=== PATIENT | female | born 1945 | race Caucasian/White ===

== ENCOUNTER 2021-03-03 08:31 | Inpatient (IN) ==
[2021-03-03] MEDS ORDERED: GLUCAGON 1 MG VIAL IM PRN ×2 (09:12)
[2021-03-03] MEDS ORDERED: DEXTROSE 50% 25 GM/50 ML VIAL IV PRN ×2 (09:12)
[2021-03-03] MEDS ORDERED: CLORAZEPATE 3.75 MG TABLET PO PRN (09:17)
[2021-03-03] MEDS ORDERED: MORPHINE 2 MG/1 ML SYRINGE IV PRN (09:18)
[2021-03-03] MEDS ORDERED: NITROGLYCERIN SL 0.4 MG TABLET SL PRN (09:18)
[2021-03-03] MEDS ORDERED: SODIUM CHLORIDE 0.9% 1,000 ML IV SCH (12:45)
[2021-03-03] MEDS: INSULIN REGULAR 100 UNIT/ML SUBCUT SCH ×3 (13:47→21:59)
[2021-03-03 13:59] LABS: Basophils % 0.4 % (0.0-0.8); Eosinophils # 0.1 10*3/uL (0.0-0.87); Eosinophils % 0.7 % (0.00-10.9); Hematocrit 45.3 VOL% (35.7-47.0); Hemoglobin 15.1 GM/DL (12.0-16.0); Immature Granulocytes % 0.6 %; Immature Granulocytes Absolute 0.04 #; Lymphocytes # 0.9 10*3/uL (1.4-4.0); Lymphocytes % 12.5 % (21.3-54.2); Mean Corpuscular HGB Conc 33.3 GM/DL (32-36); Mean Corpuscular Volume 90.2 FL (87-102); Monocytes % 7.4 % (1.7-12.7); Neutrophils % 78.4 % (38.7-73.9); Platelet Count 128 T/CUMM (130-400); Red Blood Count 5.02 MC/CUMM (3.8-5.5); White Blood Count 7.1 T/CUMM (4-12)
[2021-03-03 14:39] LABS: Albumin 3.2 G/DL (3.4-5.0); Bilirubin,Total 0.4 MG/DL (0.20-1.00); Calcium 8.9 MG/DL (8.5-10.1); Osmolality,Calculated 281.4 MOS/KG (273-304); Potassium 3.7 MMOL/L (3.5-5.1); Total Protein 6.8 G/DL (6.4-8.2)
[2021-03-03] MEDS ORDERED: PANTOPRAZOLE 40 MG TABLET PO ONE (14:52)
[2021-03-03] MEDS ORDERED: DIAZEPAM 5 MG TABLET PO ONE (14:52)
[2021-03-03 15:47] LABS: ABG Base Excess 4.2 MMOL/L (-2.5-2.5); ABG HCO3 28.1 MMOL/L (20-26); ABG Oxygen Saturation 97.3 % (95-100); ABG PH 7.457 (7.35-7.45); ABG PO2 87.5 MM HG (80-95)
[2021-03-03] MEDS: CHLORHEXIDINE 4% SOLN 118 ML BOTTLE TOP SCH ×2 (16:21→21:58)
[2021-03-03] MEDS: traMADol 50 MG TABLET PO SCH ×2 (18:31→22:01)
[2021-03-03] MEDS: METHENAMINE HIPPURATE 1 GM TABLET PO SCH (21:59)
[2021-03-03] MEDS: CHLORHEXIDINE 0.12% ORAL RINSE 60 ML BOTTLE SWISH/SPIT SCH (22:00)
[2021-03-04] MEDS ORDERED: CEFUROXIME INJ 1,500 MG in SODIUM CHLORIDE 0.9% 100 ML IV ONE (05:00)
[2021-03-04] MEDS ORDERED: PAPAVERINE 60 MG/2 ML VIAL ONE (05:29)
[2021-03-04] MEDS ORDERED: VANCOMYCIN 500 MG VIAL ONE (05:29)
[2021-03-04] MEDS ORDERED: VANCOMYCIN 1,000 MG VIAL ONE (05:29)
[2021-03-04] MEDS ORDERED: VECURONIUM 10 MG VIAL IV ONE ×2 (05:31→09:53)
[2021-03-04] MEDS ORDERED: LACTATED RINGERS 1,000 ML IV ONE (05:31)
[2021-03-04] MEDS ORDERED: CALCIUM CHLORIDE 1,000 MG/10 ML VIAL IV ONE ×2 (05:31→09:53)
[2021-03-04] MEDS ORDERED: SEVOFLURANE 1 UNIT/15 MINUTE INH ONE (05:31)
[2021-03-04] MEDS ORDERED: LIDOCAINE 2% 5 ML VIAL ONE ×2 (05:31→10:02)
[2021-03-04] MEDS ORDERED: SODIUM CHLORIDE 0.9% 1,000 ML IV ONE (05:31)
[2021-03-04] MEDS ORDERED: SUFentanil 250 MCG/5 ML AMP ONE ×3 (05:32→07:43)
[2021-03-04] MEDS ORDERED: MIDAZOLAM 10 MG/2 ML VIAL ONE ×4 (05:32→07:42)
[2021-03-04] MEDS ORDERED: AMINOCAPROIC ACID 5,000 MG/20 ML VIAL ONE (05:39)
[2021-03-04] MEDS ORDERED: SODIUM CHLORIDE 0.9% 250 ML IV ONE (05:43)
[2021-03-04] MEDS ORDERED: PHENYLEPHRINE 10 MG/1 ML VIAL IV ONE (05:44)
[2021-03-04] MEDS ORDERED: DIAZEPAM 5 MG TABLET PO ONE (06:00)
[2021-03-04] MEDS ORDERED: PANTOPRAZOLE 40 MG TABLET PO ONE (06:00)
[2021-03-04 07:27] LABS: ABG Base Excess 3.4 MMOL/L (-2.5-2.5); ABG HCO3 27.5 MMOL/L (20-26); ABG PCO2 34.2 MM HG (35-48); ABG PH 7.494 (7.35-7.45); ABG TCO2 22.8 MMOL/L (23-27); Glucose Heart Surgery 155 MG/DL (74-106); Hematocrit Heart Surgery 39.6 PERCENT (37-47); Hemoglobin Heart Surgery 12.9 G/DL (12.0-16.0); Ionized Calcium Arterial 1.11 MMOL/L (1.21-1.46); PCO2 Patient Temp Arterial 34.2 MMHG; PH Patient Temp Arterial 7.494; Patient Temperature 37 CELCIUS; Potassium Heart/CVR 3.7 MMOL/L (3.5-5.1); Sodium Heart/CVR 139 MMOL/L (135-145)
[2021-03-04 07:37] LABS: Bilirubin,Urine Negative (Negative); Blood, Urine Small mg/dL (Negative); Glucose,Urine (UA) Negative (Negative); Ketones,Urine Negative (Negative); Nitrite,Urine Negative (Negative); Protein,Urine Negative; RBC,Urine 1 /HPF (0-4); Squamous Epithelial Cell,Urine Few /HPF (0-10); Urine Appearance Slightly Hazy (Clear); Urine Color Yellow (Yellow); Urine Specific Gravity 1.016 (1.001-1.035); Urine Urobilinogen < 2.0 EU/DL (0.2-1.0)
[2021-03-04 08:53] LABS: Hematocrit Heart Surgery 24.8 PERCENT (37-47); Hemoglobin Heart Surgery 7.9 G/DL (12.0-16.0); PCO2 Patient Temp Venous 29.3 MM HG; PH Patient Temp Venous 7.544; PO2 Patient Temp Venous 41.2 MM HG; Potassium Heart/CVR 4.3 MMOL/L (3.5-5.1); VBG Base Excess 3.2 MEQ/L (0-4); VBG HCO3 27.1 MEQ/L (24-28); VBG Oxygen Saturation 88.5 %; VBG PCO2 33.9 MMHG (41-51); VBG PH 7.499; VBG PO2 50.5 MMHG (17-40); VBG Total CO2 24.5 MMOL/L
[2021-03-04] MEDS ORDERED: POTASSIUM CHLORIDE RIDER 20 MEQ/100 ML PREMIX IV ONE (09:08)
[2021-03-04] MEDS ORDERED: PHENYLEPHRINE DRIP 40 MG/250 ML PREMIX IV ONE (09:08)
[2021-03-04] MEDS ORDERED: ALBUMIN 5% 12.5 GM/250 ML VIAL IV ONE (09:09)
[2021-03-04] MEDS ORDERED: PHENYLEPHRINE DRIP 20 MG/250 ML PREMIX IV ONE (09:12)
[2021-03-04] MEDS ORDERED: HEPARIN/NACL 0.9% 2 UNITS/ML 1,000 UNIT/500 ML BAG IV ONE (09:12)
[2021-03-04] MEDS ORDERED: NITROGLYCERIN DRIP 50 MG/250 ML BOTTLE IV ONE (09:12)
[2021-03-04 09:23] LABS: Hematocrit Heart Surgery 28.6 PERCENT (37-47); Hemoglobin Heart Surgery 9.2 G/DL (12.0-16.0); PCO2 Patient Temp Venous 33.3 MM HG; PH Patient Temp Venous 7.512; PO2 Patient Temp Venous 46.2 MM HG; Potassium Heart/CVR 3.8 MMOL/L (3.5-5.1); VBG Base Excess 3.9 MEQ/L (0-4); VBG HCO3 27.8 MEQ/L (24-28); VBG Oxygen Saturation 89.7 %; VBG PCO2 38.5 MMHG (41-51); VBG PH 7.467; VBG PO2 56.5 MMHG (17-40); VBG Total CO2 25.5 MMOL/L
[2021-03-04] MEDS ORDERED: ALBUMIN 25% 25 GM/100 ML VIAL IV ONE (10:02)
[2021-03-04] MEDS ORDERED: methylPREDNISolone SOD SUC 1,000 MG/8 ML VIAL ONE (10:02)
[2021-03-04] MEDS ORDERED: MANNITOL 100 GM/500 ML BAG IV ONE (10:02)
[2021-03-04] MEDS ORDERED: MAGNESIUM SULFATE 5 GM/10 ML VIAL IV ONE (10:02)
[2021-03-04] MEDS ORDERED: DEXTROSE 5% KCL 20 MEQ 20 MEQ/1,000 ML BAG IV ONE (10:02)
[2021-03-04] MEDS ORDERED: SODIUM BICARBONATE 50 MEQ/50 ML VIAL IV ONE (10:03)
[2021-03-04] MEDS ORDERED: PROTAMINE SULFATE 250 MG/25 ML VIAL IV ONE (10:03)
[2021-03-04] MEDS ORDERED: HEPARIN 10,000 UNIT/10 ML VIAL ONE (10:03)
[2021-03-04] MEDS ORDERED: FUROSEMIDE 20 MG/2 ML VIAL ONE (10:03)
[2021-03-04 10:09] LABS: ABG Base Excess 2.3 MMOL/L (-2.5-2.5); ABG HCO3 26.5 MMOL/L (20-26); ABG PH 7.532 (7.35-7.45); ABG TCO2 22.2 MMOL/L (23-27); Glucose Heart Surgery 231 MG/DL (74-106); Hematocrit Heart Surgery 29.9 PERCENT (37-47); Hemoglobin Heart Surgery 9.7 G/DL (12.0-16.0); Ionized Calcium Arterial 1.49 MMOL/L (1.21-1.46); PH Patient Temp Arterial 7.532; Patient Temperature 37 CELCIUS; Potassium Heart/CVR 3.5 MMOL/L (3.5-5.1); Sodium Heart/CVR 135 MMOL/L (135-145)
[2021-03-04] MEDS ORDERED: ACETAMINOPHEN 650 MG SUPP RECTAL PRN (10:25)
[2021-03-04] MEDS ORDERED: MIDAZOLAM 10 MG/2 ML VIAL IV PRN (10:25)
[2021-03-04] MEDS ORDERED: NITROPRUSSIDE 100 MG in DEXTROSE 5% 250 ML IV PRN (10:25)
[2021-03-04] MEDS ORDERED: DEXTROSE 50% 25 GM/50 ML VIAL IV PRN ×2 (10:25)
[2021-03-04] MEDS ORDERED: CALCIUM CHLORIDE 1,000 MG/10 ML SYRINGE IV PRN (10:25)
[2021-03-04] MEDS ORDERED: INSULIN REGULAR 100 UNIT/ML IV PRN (10:25)
[2021-03-04] MEDS ORDERED: CHLORHEXIDINE 4% SOLN 118 ML BOTTLE TOP PRN (10:25)
[2021-03-04] MEDS ORDERED: ONDANSETRON 4 MG/2 ML VIAL IV PRN (10:25)
[2021-03-04] MEDS ORDERED: MAGNESIUM SULF RIDER 2 GM/50 ML PREMIX IV PRN (10:25)
[2021-03-04] MEDS ORDERED: MAGNESIUM SULF RIDER 4 GM/100 ML PREMIX IV PRN (10:25)
[2021-03-04] MEDS ORDERED: VECURONIUM 10 MG VIAL IV PRN ×2 (10:25)
[2021-03-04] MEDS ORDERED: PHENYLEPHRINE DRIP 40 MG/250 ML PREMIX IV PRN (10:25)
[2021-03-04] MEDS ORDERED: INSULIN REGULAR 100 UNIT/ML IV ONE (10:25)
[2021-03-04] MEDS ORDERED: MIDAZOLAM 2 MG/2 ML VIAL IV PRN (10:25)
[2021-03-04] MEDS ORDERED: INSULIN REGULAR DRIP 100 ML IV SCH (10:30)
[2021-03-04] MEDS: SODIUM CHLORIDE 0.45% 1,000 ML IV SCH ×2 (10:40)
[2021-03-04 11:31] LABS: ABG Base Excess 2.6 MMOL/L (-2.5-2.5); ABG HCO3 24.6 MMOL/L (20-26); ABG PCO2 29.8 MM HG (35-48); ABG PH 7.535 (7.35-7.45); ABG PO2 122.4 MM HG (80-95); ABG TCO2 25.5 MMOL/L (23-27); Glucose Heart Surgery 200 MG/DL (74-106); Potassium Heart/CVR 3.2 MMOL/L (3.5-5.1)
[2021-03-04] MEDS: LACTATED RINGERS 250 ML IV PRN ×6 (11:31→22:40)
[2021-03-04 11:35] LABS: Basophils % 0.3 % (0.0-0.8); Eosinophils % 0.3 % (0.00-10.9); Hematocrit 33.4 VOL% (35.7-47.0); Immature Granulocytes % 1.6 %; Immature Granulocytes Absolute 0.05 #; Lymphocytes # 0.2 10*3/uL (1.4-4.0); Lymphocytes % 7.3 % (21.3-54.2); Mean Corpuscular HGB Conc 34.4 GM/DL (32-36); Mean Corpuscular Volume 87.9 FL (87-102); Mean Platelet Volume 11.9 FL (9.6-12.0); Monocytes % 3.8 % (1.7-12.7); Neutrophils % 86.7 % (38.7-73.9); Red Cell Distribution Width 12.9 % (9.3-17.3)
[2021-03-04 11:41] LABS: Hemoglobin 11.5 GM/DL (12.0-16.0); Platelet Count 86 T/CUMM (130-400); White Blood Count 3.1 T/CUMM (4-12)
[2021-03-04 11:48] LABS: INR 1.1; PT Patient Result 12.4 SECS (10.5-12.0); Partial Thromboplastin Time 25.2 SECS (23.9-33.8)
[2021-03-04 12:09] LABS: CKMB % 7.8 %
[2021-03-04 12:10] LABS: High Sensitive Troponin I* 3352.8 ng/L (0-54)
[2021-03-04] MEDS: POTASSIUM CHLORIDE RIDER 20 MEQ/100 ML PREMIX IV PRN ×4 (12:11→21:44)
[2021-03-04] MEDS: traMADol 50 MG TABLET PO SCH (12:12)
[2021-03-04] MEDS: CHLORHEXIDINE 4% SOLN 118 ML BOTTLE TOP SCH (12:12)
[2021-03-04] MEDS: INSULIN REGULAR 100 UNIT/ML SUBCUT SCH (12:13)
[2021-03-04] MEDS: CHLORHEXIDINE 0.12% ORAL RINSE 60 ML BOTTLE SWISH/SPIT SCH ×2 (12:13→21:29)
[2021-03-04] MEDS: METHENAMINE HIPPURATE 1 GM TABLET PO SCH (12:13)
[2021-03-04 12:27] LABS: Albumin 2.7 G/DL (3.4-5.0); Bilirubin,Total 1.4 MG/DL (0.20-1.00); Calcium 9.5 MG/DL (8.5-10.1); Osmolality,Calculated 281.8 MOS/KG (273-304); Potassium 3.4 MMOL/L (3.5-5.1); Total Protein 4.9 G/DL (6.4-8.2)
[2021-03-04] MEDS: KETOROLAC 30 MG/1 ML VIAL IV SCH ×2 (13:07→18:40)
[2021-03-04] MEDS: ALBUMIN 5% 12.5 GM/250 ML VIAL IV PRN ×2 (13:49→19:50)
[2021-03-04 14:18] LABS: ABG HCO3 26.2 MMOL/L (20-26); ABG Oxygen Saturation 99.8 % (95-100); ABG PCO2 31.2 MM HG (35-48); ABG PH 7.503 (7.35-7.45); ABG TCO2 21.6 MMOL/L (23-27); Glucose Heart Surgery 178 MG/DL (74-106); Hematocrit Heart Surgery 36.6 PERCENT (37-47); Hemoglobin Heart Surgery 11.9 G/DL (12.0-16.0); Potassium Heart/CVR 3.7 MMOL/L (3.5-5.1)
[2021-03-04] MEDS: POTASSIUM CHLORIDE RIDER 10 MEQ/100 ML PREMIX IV PRN ×2 (15:24→22:27)
[2021-03-04 17:04] LABS: ABG Base Excess 2.7 MMOL/L (-2.5-2.5); ABG HCO3 26.8 MMOL/L (20-26); ABG Oxygen Saturation 99.6 % (95-100); ABG PCO2 30.2 MM HG (35-48); ABG PH 7.521 (7.35-7.45); ABG TCO2 21.4 MMOL/L (23-27); Glucose Heart Surgery 134 MG/DL (74-106); Hematocrit Heart Surgery 39.6 PERCENT (37-47); Hemoglobin Heart Surgery 12.9 G/DL (12.0-16.0)
[2021-03-04] MEDS: MORPHINE 10 MG/1 ML VIAL IV PRN ×2 (17:36→23:45)
[2021-03-04] MEDS: CEFUROXIME INJ 1,500 MG in SODIUM CHLORIDE 0.9% 100 ML IV SCH (18:45)
[2021-03-04 19:24] LABS: ABG Base Excess 2.8 MMOL/L (-2.5-2.5); ABG HCO3 26.9 MMOL/L (20-26); ABG Oxygen Saturation 99.7 % (95-100); ABG PCO2 29.5 MM HG (35-48); ABG TCO2 21.4 MMOL/L (23-27); Glucose Heart Surgery 164 MG/DL (74-106); Hematocrit Heart Surgery 39.5 PERCENT (37-47); Hemoglobin Heart Surgery 12.8 G/DL (12.0-16.0)
[2021-03-04] MEDS ORDERED: FUROSEMIDE 40 MG/4 ML VIAL IV ONE (19:40)
[2021-03-04] MEDS ORDERED: FUROSEMIDE 40 MG/4 ML VIAL ONE (19:41)
[2021-03-04 20:16] LABS: ABG Base Excess 2.6 MMOL/L (-2.5-2.5); ABG HCO3 24.5 MMOL/L (20-26); ABG Oxygen Saturation 98.4 % (95-100); ABG PCO2 29.8 MM HG (35-48); ABG PH 7.533 (7.35-7.45); ABG TCO2 25.4 MMOL/L (23-27); Glucose Heart Surgery 151 MG/DL (74-106); Hemoglobin Heart Surgery 12.8 G/DL (12.0-16.0); Potassium Heart/CVR 3.9 MMOL/L (3.5-5.1)
[2021-03-04 20:32] LABS: CKMB % 7.7 %
[2021-03-04 20:38] LABS: High Sensitive Troponin I* 5799.8 ng/L (0-54)
[2021-03-04 21:29] LABS: ABG Base Excess 2.8 MMOL/L (-2.5-2.5); ABG HCO3 26.2 MMOL/L (20-26); ABG Oxygen Saturation 98.3 % (95-100); ABG PCO2 36.2 MM HG (35-48); ABG PH 7.477 (7.35-7.45); ABG PO2 136.7 MM HG (80-95); ABG TCO2 27.3 MMOL/L (23-27); Glucose Heart Surgery 158 MG/DL (74-106); Hemoglobin Heart Surgery 12.9 G/DL (12.0-16.0); Potassium Heart/CVR 3.8 MMOL/L (3.5-5.1)
[2021-03-04 23:23] LABS: ABG Base Excess 1.7 MMOL/L (-2.5-2.5); ABG HCO3 25.9 MMOL/L (20-26); ABG Oxygen Saturation 99.3 % (95-100); ABG PCO2 42.8 MM HG (35-48); ABG PH 7.403 (7.35-7.45); ABG TCO2 23.5 MMOL/L (23-27); Glucose Heart Surgery 158 MG/DL (74-106); Hematocrit Heart Surgery 38.4 PERCENT (37-47); Hemoglobin Heart Surgery 12.5 G/DL (12.0-16.0); Potassium Heart/CVR 4.4 MMOL/L (3.5-5.1)
[2021-03-05] MEDS ORDERED: DEXMEDETOMIDINE 200 MCG in SODIUM CHLORIDE 0.9% 48 ML IV PRN (00:03)
[2021-03-05] MEDS: KETOROLAC 30 MG/1 ML VIAL IV SCH ×4 (00:34→20:23)
[2021-03-05] MEDS: ALBUMIN 5% 12.5 GM/250 ML VIAL IV PRN ×5 (01:42→16:27)
[2021-03-05 02:14] LABS: ABG Base Excess 1.3 MMOL/L (-2.5-2.5); ABG HCO3 25.6 MMOL/L (20-26); ABG Oxygen Saturation 99.2 % (95-100); ABG PCO2 45.1 MM HG (35-48); ABG PH 7.382 (7.35-7.45); ABG TCO2 23.9 MMOL/L (23-27); Glucose Heart Surgery 140 MG/DL (74-106); Hematocrit Heart Surgery 36.3 PERCENT (37-47); Hemoglobin Heart Surgery 11.8 G/DL (12.0-16.0); Potassium Heart/CVR 4.1 MMOL/L (3.5-5.1)
[2021-03-05] MEDS ORDERED: FUROSEMIDE 40 MG/4 ML VIAL IV ONE (03:00)
[2021-03-05 03:45] LABS: CKMB % 9.6 %
[2021-03-05 03:51] LABS: High Sensitive Troponin I* 8063.4 ng/L (0-54)
[2021-03-05 04:00] LABS: Basophils % 0.1 % (0.0-0.8); Hematocrit 34.7 VOL% (35.7-47.0); Hemoglobin 11.7 GM/DL (12.0-16.0); Immature Granulocytes % 0.5 %; Immature Granulocytes Absolute 0.07 #; Lymphocytes # 0.3 10*3/uL (1.4-4.0); Lymphocytes % 2.5 % (21.3-54.2); Mean Corpuscular HGB Conc 33.7 GM/DL (32-36); Mean Platelet Volume 11.9 FL (9.6-12.0); Monocytes % 2.4 % (1.7-12.7); Neutrophils % 94.5 % (38.7-73.9); Platelet Count 108 T/CUMM (130-400); Red Cell Distribution Width 13.1 % (9.3-17.3); White Blood Count 13.6 T/CUMM (4-12)
[2021-03-05 04:08] LABS: Albumin 3.5 G/DL (3.4-5.0); Bilirubin,Direct 0.22 MG/DL (0.0-0.20); Bilirubin,Total 1.7 MG/DL (0.20-1.00); Calcium 8.6 MG/DL (8.5-10.1); Osmolality,Calculated 286.3 MOS/KG (273-304); Potassium 4.1 MMOL/L (3.5-5.1); Total Protein 5.4 G/DL (6.4-8.2)
[2021-03-05 04:20] LABS: CKMB % 9.6 %; High Sensitive Troponin I* 9346.5 ng/L (0-54)
[2021-03-05 04:40] LABS: Band Neutrophils 7 % (0-10); Hypochromasia Slight; Lymphocytes 1 % (20-55); Microcytosis 1+; Ovalocytes Slight; Platelet Estimate Decreased; Segmented Neutrophils 90 % (50-85); Total Cells Counted 100
[2021-03-05 04:52] LABS: ABG Base Excess 2.3 MMOL/L (-2.5-2.5); ABG HCO3 26.4 MMOL/L (20-26); ABG PCO2 44.4 MM HG (35-48); ABG TCO2 24.2 MMOL/L (23-27); Glucose Heart Surgery 146 MG/DL (74-106); Hematocrit Heart Surgery 38.1 PERCENT (37-47); Hemoglobin Heart Surgery 12.4 G/DL (12.0-16.0); Potassium Heart/CVR 3.9 MMOL/L (3.5-5.1)
[2021-03-05] MEDS ORDERED: DEXMEDETOMIDINE 400 MCG in SODIUM CHLORIDE 0.9% 96 ML IV PRN (05:00)
[2021-03-05] MEDS: CEFUROXIME INJ 1,500 MG in SODIUM CHLORIDE 0.9% 100 ML IV SCH ×2 (05:20→17:30)
[2021-03-05] MEDS: MORPHINE 10 MG/1 ML VIAL IV PRN (07:12)
[2021-03-05] MEDS ORDERED: KETOROLAC 30 MG/1 ML VIAL IV PRN (07:53)
[2021-03-05 08:14] LABS: ABG Base Excess 1.1 MMOL/L (-2.5-2.5); ABG HCO3 26.6 MMOL/L (20-26); ABG Oxygen Saturation 98.4 % (95-100); ABG PCO2 45.6 MM HG (35-48); ABG PH 7.383 (7.35-7.45); ABG PO2 140.4 MM HG (80-95); Glucose Heart Surgery 165 MG/DL (74-106); Hemoglobin Heart Surgery 12.6 G/DL (12.0-16.0); Potassium Heart/CVR 4.2 MMOL/L (3.5-5.1)
[2021-03-05] MEDS: POTASSIUM CHLORIDE RIDER 20 MEQ/100 ML PREMIX IV PRN (08:37)
[2021-03-05] MEDS: INSULIN REGULAR 100 UNIT/ML SUBCUT SCH ×5 (08:37→23:58)
[2021-03-05] MEDS: CHLORHEXIDINE 0.12% ORAL RINSE 60 ML BOTTLE SWISH/SPIT SCH ×2 (09:13→20:38)
[2021-03-05 09:34] LABS: ABG Base Excess 0.2 MMOL/L (-2.5-2.5); ABG HCO3 25.8 MMOL/L (20-26); ABG Oxygen Saturation 97.6 % (95-100); ABG PCO2 45.9 MM HG (35-48); ABG PH 7.368 (7.35-7.45); ABG PO2 111.5 MM HG (80-95); ABG TCO2 27.2 MMOL/L (23-27); Glucose Heart Surgery 179 MG/DL (74-106); Hemoglobin Heart Surgery 12.6 G/DL (12.0-16.0); Potassium Heart/CVR 4.3 MMOL/L (3.5-5.1)
[2021-03-05 11:19] LABS: ABG Base Excess -0.2 MMOL/L (-2.5-2.5); ABG HCO3 24.2 MMOL/L (20-26); ABG Oxygen Saturation 95.4 % (95-100); ABG PCO2 51.2 MM HG (35-48); ABG PH 7.324 (7.35-7.45); ABG PO2 80.7 MM HG (80-95); ABG TCO2 23.9 MMOL/L (23-27); Glucose Heart Surgery 187 MG/DL (74-106); Hematocrit Heart Surgery 35.2 PERCENT (37-47); Hemoglobin Heart Surgery 11.4 G/DL (12.0-16.0); Potassium Heart/CVR 4.6 MMOL/L (3.5-5.1)
[2021-03-05] MEDS: SODIUM CHLORIDE 0.45% 1,000 ML IV SCH ×2 (11:39)
[2021-03-05] MEDS ORDERED: oxyCODONE/ACETAMINOPHEN 5-325 MG TABLET PO PRN (12:30)
[2021-03-05] MEDS: ASPIRIN EC 81 MG TABLET PO SCH (13:35)
[2021-03-05] MEDS: CLORAZEPATE 3.75 MG TABLET PO PRN ×3 (14:31→23:52)
[2021-03-05] MEDS: traMADol 50 MG TABLET PO PRN ×2 (17:51→23:52)
[2021-03-06] MEDS: SODIUM CHLORIDE 0.45% 1,000 ML IV SCH (00:08)
[2021-03-06] MEDS: INSULIN REGULAR 100 UNIT/ML SUBCUT SCH ×5 (04:01→21:25)
[2021-03-06] MEDS: KETOROLAC 30 MG/1 ML VIAL IV SCH ×5 (04:02→21:25)
[2021-03-06] MEDS: traMADol 50 MG TABLET PO PRN ×2 (04:07→08:45)
[2021-03-06] MEDS: CLORAZEPATE 3.75 MG TABLET PO PRN ×2 (04:07→09:14)
[2021-03-06 06:51] LABS: Basophils % 0.1 % (0.0-0.8); Eosinophils % 0.1 % (0.00-10.9); Hematocrit 30.5 VOL% (35.7-47.0); Hemoglobin 10.2 GM/DL (12.0-16.0); Immature Granulocytes % 0.6 %; Immature Granulocytes Absolute 0.04 #; Lymphocytes # 0.5 10*3/uL (1.4-4.0); Lymphocytes % 6.5 % (21.3-54.2); Mean Corpuscular HGB Conc 33.4 GM/DL (32-36); Mean Corpuscular Volume 92.1 FL (87-102); Mean Platelet Volume 12.1 FL (9.6-12.0); Monocytes % 6.5 % (1.7-12.7); Neutrophils % 86.2 % (38.7-73.9); Platelet Count 64 T/CUMM (130-400); Red Blood Count 3.31 MC/CUMM (3.8-5.5); Red Cell Distribution Width 13.2 % (9.3-17.3); White Blood Count 6.9 T/CUMM (4-12)
[2021-03-06 07:09] LABS: Albumin 3.2 G/DL (3.4-5.0); Bilirubin,Direct 0.14 MG/DL (0.0-0.20); Bilirubin,Total 0.8 MG/DL (0.20-1.00); Calcium 8.6 MG/DL (8.5-10.1); Osmolality,Calculated 286.4 MOS/KG (273-304); Total Protein 5.3 G/DL (6.4-8.2)
[2021-03-06 07:17] LABS: ABG Base Excess 2.2 MMOL/L (-2.5-2.5); ABG HCO3 26.9 MMOL/L (20-26); ABG Oxygen Saturation 91.4 % (95-100); ABG PCO2 42.3 MM HG (35-48); ABG PH 7.421 (7.35-7.45); ABG PO2 60.6 MM HG (80-95); ABG TCO2 28.2 MMOL/L (23-27)
[2021-03-06 07:38] LABS: Anisocytosis 1+; Ovalocytes Few; Platelet Estimate Decreased
[2021-03-06] MEDS: AMITRIPTYLINE 25 MG TABLET PO SCH (08:19)
[2021-03-06] MEDS: CHLORHEXIDINE 0.12% ORAL RINSE 60 ML BOTTLE SWISH/SPIT SCH ×2 (08:19→21:26)
[2021-03-06] MEDS: ASPIRIN EC 81 MG TABLET PO SCH (08:19)
[2021-03-06] MEDS: METHENAMINE HIPPURATE 1 GM TABLET PO SCH ×2 (08:19→21:25)
[2021-03-06] MEDS: ASCORBIC ACID 500 MG TABLET PO SCH ×2 (08:19→21:25)
[2021-03-06] MEDS: POTASSIUM CHLORIDE RIDER 20 MEQ/100 ML PREMIX IV PRN (08:20)
[2021-03-06] MEDS ORDERED: FUROSEMIDE 40 MG/4 ML VIAL IV ONE (08:45)
[2021-03-06] MEDS ORDERED: FUROSEMIDE 40 MG/4 ML VIAL ONE (09:03)
[2021-03-06] MEDS ORDERED: MAGNESIUM SULF RIDER 4 GM/100 ML PREMIX IV PRN (09:46)
[2021-03-06] MEDS ORDERED: DEXTROSE 50% 25 GM/50 ML VIAL IV PRN ×2 (09:46)
[2021-03-06] MEDS ORDERED: GLUCAGON 1 MG VIAL IM PRN ×2 (09:46)
[2021-03-06] MEDS ORDERED: SODIUM CHLOR 0.45% KCL 20 MEQ 20 MEQ/1,000 ML BAG IV SCH (09:46)
[2021-03-06] MEDS ORDERED: MAGNESIUM SULF RIDER 2 GM/50 ML PREMIX IV PRN (09:46)
[2021-03-06] MEDS ORDERED: ZALEPLON 5 MG CAPSULE PO PRN (09:46)
[2021-03-06] MEDS ORDERED: ACETAMINOPHEN 325 MG TABLET PO PRN (09:46)
[2021-03-06] MEDS ORDERED: ALUMINUM/MAGNES/SIMETH MAX STR 30 ML UDCUP PO PRN (09:46)
[2021-03-06] MEDS ORDERED: [UNRECOGNIZED DRUG - OTHER] SUBCUT SCH (11:30)
[2021-03-07] MEDS: KETOROLAC 30 MG/1 ML VIAL IV SCH ×4 (04:10→21:13)
[2021-03-07 05:36] LABS: Basophils % 0.2 % (0.0-0.8); Eosinophils # 0.1 10*3/uL (0.0-0.87); Eosinophils % 1.2 % (0.00-10.9); Hematocrit 30.5 VOL% (35.7-47.0); Hemoglobin 10.2 GM/DL (12.0-16.0); Immature Granulocytes % 1.2 %; Immature Granulocytes Absolute 0.07 #; Lymphocytes # 0.7 10*3/uL (1.4-4.0); Lymphocytes % 10.7 % (21.3-54.2); Mean Corpuscular HGB Conc 33.4 GM/DL (32-36); Mean Corpuscular Volume 91.3 FL (87-102); Mean Platelet Volume 11.7 FL (9.6-12.0); Monocytes % 7.4 % (1.7-12.7); Neutrophils % 79.3 % (38.7-73.9); Red Blood Count 3.34 MC/CUMM (3.8-5.5); Red Cell Distribution Width 13.2 % (9.3-17.3); White Blood Count 6.1 T/CUMM (4-12)
[2021-03-07 05:49] LABS: Platelet Count 71 T/CUMM (130-400)
[2021-03-07] MEDS ORDERED: FUROSEMIDE 40 MG/4 ML VIAL IV ONE (06:00)
[2021-03-07 06:04] LABS: Albumin 2.9 G/DL (3.4-5.0); Bilirubin,Direct 0.17 MG/DL (0.0-0.20); Bilirubin,Indirect 1.2 MG/DL (0.0-1.0); Bilirubin,Total 1.4 MG/DL (0.20-1.00); Calcium 8.5 MG/DL (8.5-10.1); Osmolality,Calculated 284.7 MOS/KG (273-304); Potassium 4.1 MMOL/L (3.5-5.1); Total Protein 5.1 G/DL (6.4-8.2)
[2021-03-07 06:07] LABS: High Sensitive Troponin I* 12722.9 ng/L (0-54)
[2021-03-07 06:25] LABS: Anisocytosis 1+; Macrocytosis 1+; Platelet Estimate Decreased
[2021-03-07] MEDS: INSULIN REGULAR 100 UNIT/ML SUBCUT SCH ×4 (08:29→21:12)
[2021-03-07] MEDS ORDERED: NON-FORMULARY MEDICATION (Aspirin 81 mg Capsule) PO SCH (09:00)
[2021-03-07] MEDS ORDERED: CHOLECALCIFEROL PO SCH (09:00)
[2021-03-07] MEDS: DOCUSATE SODIUM 100 MG CAPSULE PO SCH (09:20)
[2021-03-07] MEDS: ASCORBIC ACID 500 MG TABLET PO SCH ×2 (09:20→21:13)
[2021-03-07] MEDS: ASPIRIN EC 81 MG TABLET PO SCH (09:21)
[2021-03-07] MEDS: PANTOPRAZOLE 40 MG TABLET PO SCH (09:21)
[2021-03-07] MEDS: FERROUS SULFATE 325 MG TABLET PO SCH (09:21)
[2021-03-07] MEDS: FUROSEMIDE 20 MG TABLET PO SCH (09:21)
[2021-03-07] MEDS: METHENAMINE HIPPURATE 1 GM TABLET PO SCH ×2 (09:21→21:13)
[2021-03-07] MEDS: AMITRIPTYLINE 25 MG TABLET PO SCH (09:21)
[2021-03-07] MEDS: CHOLECALCIFEROL 5,000 UNIT TABLET PO SCH ×2 (09:22→09:29)
[2021-03-07] MEDS: CHLORHEXIDINE 0.12% ORAL RINSE 60 ML BOTTLE SWISH/SPIT SCH ×2 (09:30→21:14)
[2021-03-07] MEDS: METOPROLOL TARTRATE 25 MG TABLET PO SCH (09:39)
[2021-03-07] MEDS: traMADol 50 MG TABLET PO PRN (13:28)
[2021-03-07] MEDS: CLORAZEPATE 3.75 MG TABLET PO PRN (15:24)
[2021-03-08] MEDS: KETOROLAC 30 MG/1 ML VIAL IV SCH ×4 (04:46→22:34)
[2021-03-08 06:31] LABS: Basophils % 0.3 % (0.0-0.8); Eosinophils # 0.1 10*3/uL (0.0-0.87); Eosinophils % 1.9 % (0.00-10.9); Hematocrit 32.3 VOL% (35.7-47.0); Hemoglobin 10.8 GM/DL (12.0-16.0); Immature Granulocytes % 0.7 %; Immature Granulocytes Absolute 0.04 #; Lymphocytes # 0.8 10*3/uL (1.4-4.0); Lymphocytes % 13.6 % (21.3-54.2); Mean Corpuscular HGB Conc 33.4 GM/DL (32-36); Mean Platelet Volume 12.5 FL (9.6-12.0); Neutrophils % 76.5 % (38.7-73.9); Platelet Count 88 T/CUMM (130-400); Red Blood Count 3.55 MC/CUMM (3.8-5.5); Red Cell Distribution Width 13.2 % (9.3-17.3); White Blood Count 5.8 T/CUMM (4-12)
[2021-03-08 06:56] LABS: Hypochromasia 1+; Microcytosis 1+; Platelet Estimate Decreased
[2021-03-08 07:05] LABS: Albumin 2.7 G/DL (3.4-5.0); Bilirubin,Direct 0.18 MG/DL (0.0-0.20); Bilirubin,Indirect 0.8 MG/DL (0.0-1.0); CKMB % 10.7 %; Calcium 8.6 MG/DL (8.5-10.1); High Sensitive Troponin I* 11069.4 ng/L (0-54); Osmolality,Calculated 290.3 MOS/KG (273-304); Potassium 3.9 MMOL/L (3.5-5.1); Total Protein 5.1 G/DL (6.4-8.2)
[2021-03-08] MEDS: INSULIN REGULAR 100 UNIT/ML SUBCUT SCH ×4 (08:31→21:37)
[2021-03-08] MEDS: ASPIRIN EC 81 MG TABLET PO SCH (09:24)
[2021-03-08] MEDS: DOCUSATE SODIUM 100 MG CAPSULE PO SCH (09:24)
[2021-03-08] MEDS: FERROUS SULFATE 325 MG TABLET PO SCH (09:25)
[2021-03-08] MEDS: AMITRIPTYLINE 25 MG TABLET PO SCH (09:25)
[2021-03-08] MEDS: METHENAMINE HIPPURATE 1 GM TABLET PO SCH ×2 (09:26→22:33)
[2021-03-08] MEDS: FUROSEMIDE 20 MG TABLET PO SCH (09:26)
[2021-03-08] MEDS: CHLORHEXIDINE 0.12% ORAL RINSE 60 ML BOTTLE SWISH/SPIT SCH ×2 (09:27→22:33)
[2021-03-08] MEDS: METOPROLOL TARTRATE 25 MG TABLET PO SCH (09:27)
[2021-03-08] MEDS: ASCORBIC ACID 500 MG TABLET PO SCH ×2 (09:28→22:33)
[2021-03-08] MEDS: PANTOPRAZOLE 40 MG TABLET PO SCH (09:28)
[2021-03-08] MEDS: CHOLECALCIFEROL 5,000 UNIT TABLET PO SCH (09:29)
[2021-03-08] MEDS: POTASSIUM CHLORIDE 20 MEQ TABLET PO PRN ×2 (09:29→10:45)
[2021-03-08] MEDS: MAGNESIUM HYDROXIDE SUSP 30 ML UDCUP PO PRN (14:20)
[2021-03-08] MEDS: CLORAZEPATE 3.75 MG TABLET PO PRN (22:36)
[2021-03-08] MEDS: ONDANSETRON 4 MG/2 ML VIAL IV PRN (22:38)
[2021-03-09] MEDS: KETOROLAC 30 MG/1 ML VIAL IV SCH (03:54)
[2021-03-09] MEDS: ONDANSETRON 4 MG/2 ML VIAL IV PRN (04:00)
[2021-03-09 06:37] LABS: Basophils % 0.2 % (0.0-0.8); Eosinophils # 0.1 10*3/uL (0.0-0.87); Eosinophils % 1.5 % (0.00-10.9); Hematocrit 32.2 VOL% (35.7-47.0); Hemoglobin 10.8 GM/DL (12.0-16.0); Immature Granulocytes % 0.6 %; Immature Granulocytes Absolute 0.04 #; Lymphocytes # 0.6 10*3/uL (1.4-4.0); Lymphocytes % 8.6 % (21.3-54.2); Mean Corpuscular HGB Conc 33.5 GM/DL (32-36); Mean Corpuscular Volume 90.7 FL (87-102); Mean Platelet Volume 12.4 FL (9.6-12.0); Monocytes % 7.4 % (1.7-12.7); Neutrophils % 81.7 % (38.7-73.9); Platelet Count 96 T/CUMM (130-400); Red Blood Count 3.55 MC/CUMM (3.8-5.5); Red Cell Distribution Width 13.3 % (9.3-17.3); White Blood Count 6.7 T/CUMM (4-12)
[2021-03-09 07:04] LABS: Calcium 8.6 MG/DL (8.5-10.1); Osmolality,Calculated 293.1 MOS/KG (273-304); Potassium 4.6 MMOL/L (3.5-5.1)
[2021-03-09] MEDS: INSULIN REGULAR 100 UNIT/ML SUBCUT SCH ×4 (08:31→20:11)
[2021-03-09] MEDS: FUROSEMIDE 20 MG TABLET PO SCH (09:42)
[2021-03-09] MEDS: FERROUS SULFATE 325 MG TABLET PO SCH (09:42)
[2021-03-09] MEDS: PANTOPRAZOLE 40 MG TABLET PO SCH (09:42)
[2021-03-09] MEDS: POLYETHYLENE GLYCOL POWDER 17 GM PACK PO SCH (09:42)
[2021-03-09] MEDS: DOCUSATE SODIUM 100 MG CAPSULE PO SCH (09:42)
[2021-03-09] MEDS: METOPROLOL TARTRATE 25 MG TABLET PO SCH (09:42)
[2021-03-09] MEDS: METHENAMINE HIPPURATE 1 GM TABLET PO SCH ×2 (09:42→20:11)
[2021-03-09] MEDS: AMITRIPTYLINE 25 MG TABLET PO SCH (09:42)
[2021-03-09] MEDS: CHOLECALCIFEROL 5,000 UNIT TABLET PO SCH (09:42)
[2021-03-09] MEDS: ASCORBIC ACID 500 MG TABLET PO SCH ×2 (09:42→20:11)
[2021-03-09] MEDS: ASPIRIN EC 81 MG TABLET PO SCH (09:42)
[2021-03-09] MEDS: CHLORHEXIDINE 0.12% ORAL RINSE 60 ML BOTTLE SWISH/SPIT SCH ×2 (09:43→20:11)
[2021-03-09] MEDS: traMADol 50 MG TABLET PO PRN (16:39)
[2021-03-10] MEDS: traMADol 50 MG TABLET PO PRN (04:15)
[2021-03-10 05:34] LABS: Basophils % 0.3 % (0.0-0.8); Eosinophils # 0.1 10*3/uL (0.0-0.87); Eosinophils % 2.2 % (0.00-10.9); Hematocrit 33.1 VOL% (35.7-47.0); Hemoglobin 11.1 GM/DL (12.0-16.0); Immature Granulocytes % 0.5 %; Immature Granulocytes Absolute 0.03 #; Lymphocytes # 0.7 10*3/uL (1.4-4.0); Lymphocytes % 10.7 % (21.3-54.2); Mean Corpuscular HGB Conc 33.5 GM/DL (32-36); Mean Corpuscular Volume 91.9 FL (87-102); Monocytes % 7.3 % (1.7-12.7); Platelet Count 108 T/CUMM (130-400); Red Cell Distribution Width 13.5 % (9.3-17.3); White Blood Count 6.5 T/CUMM (4-12)
[2021-03-10 07:52] LABS: Alanine Aminotransferase 24 U/L (13-56); Albumin 2.8 G/DL (3.4-5.0); Alkaline Phosphatase 84 U/L (45-117); Aspartate Amino Transferase 22 U/L (0-37); Bilirubin,Indirect 0.8 MG/DL (0.0-1.0); Blood Urea Nitrogen 32 MG/DL (7-18); Calcium 8.7 MG/DL (8.5-10.1); Carbon Dioxide 31 MMOL/L (21-32); Estimated Glom Filtration Rate 68 ML/MIN; Glucose 146 MG/DL (74-106); Osmolality,Calculated 290.3 MOS/KG (273-304); Potassium 4.4 MMOL/L (3.5-5.1); Sodium 141 MMOL/L (136-145); Total Protein 5.6 G/DL (6.4-8.2)
[2021-03-10] MEDS: INSULIN REGULAR 100 UNIT/ML SUBCUT SCH ×4 (08:35→20:24)
[2021-03-10] MEDS: FERROUS SULFATE 325 MG TABLET PO SCH (08:54)
[2021-03-10] MEDS: METHENAMINE HIPPURATE 1 GM TABLET PO SCH ×2 (09:53→20:23)
[2021-03-10] MEDS: PANTOPRAZOLE 40 MG TABLET PO SCH (09:53)
[2021-03-10] MEDS: DOCUSATE SODIUM 100 MG CAPSULE PO SCH (09:53)
[2021-03-10] MEDS: ASCORBIC ACID 500 MG TABLET PO SCH ×2 (09:53→20:23)
[2021-03-10] MEDS: FUROSEMIDE 20 MG TABLET PO SCH (09:53)
[2021-03-10] MEDS: ASPIRIN EC 81 MG TABLET PO SCH (09:54)
[2021-03-10] MEDS: CHOLECALCIFEROL 5,000 UNIT TABLET PO SCH (09:54)
[2021-03-10] MEDS: POLYETHYLENE GLYCOL POWDER 17 GM PACK PO SCH (09:54)
[2021-03-10] MEDS: METOPROLOL TARTRATE 25 MG TABLET PO SCH (09:54)
[2021-03-10] MEDS: AMITRIPTYLINE 25 MG TABLET PO SCH (09:54)
[2021-03-10] MEDS: CHLORHEXIDINE 0.12% ORAL RINSE 60 ML BOTTLE SWISH/SPIT SCH ×2 (09:56→20:24)
[2021-03-11 05:58] LABS: Basophils % 0.4 % (0.0-0.8); Eosinophils # 0.1 10*3/uL (0.0-0.87); Eosinophils % 2.1 % (0.00-10.9); Hemoglobin 10.3 GM/DL (12.0-16.0); Immature Granulocytes % 0.8 %; Immature Granulocytes Absolute 0.04 #; Lymphocytes # 0.6 10*3/uL (1.4-4.0); Lymphocytes % 11.7 % (21.3-54.2); Mean Corpuscular HGB Conc 33.2 GM/DL (32-36); Mean Corpuscular Volume 92.3 FL (87-102); Mean Platelet Volume 12.1 FL (9.6-12.0); Monocytes % 8.7 % (1.7-12.7); Neutrophils % 76.3 % (38.7-73.9); Platelet Count 102 T/CUMM (130-400); Red Blood Count 3.36 MC/CUMM (3.8-5.5); Red Cell Distribution Width 13.7 % (9.3-17.3); White Blood Count 5.3 T/CUMM (4-12)
[2021-03-11 06:20] LABS: Alanine Aminotransferase 16 U/L (13-56); Albumin 2.7 G/DL (3.4-5.0); Alkaline Phosphatase 82 U/L (45-117); Aspartate Amino Transferase 13 U/L (0-37); Bilirubin,Indirect 0.6 MG/DL (0.0-1.0); Blood Urea Nitrogen 28 MG/DL (7-18); Calcium 8.5 MG/DL (8.5-10.1); Carbon Dioxide 32 MMOL/L (21-32); Estimated Glom Filtration Rate 78 ML/MIN; Glucose 154 MG/DL (74-106); Osmolality,Calculated 291.1 MOS/KG (273-304); Potassium 4.2 MMOL/L (3.5-5.1); Sodium 142 MMOL/L (136-145); Total Protein 5.4 G/DL (6.4-8.2)
[2021-03-11] MEDS: KETOROLAC 30 MG/1 ML VIAL IV PRN ×2 (07:39→22:24)
[2021-03-11] MEDS: INSULIN REGULAR 100 UNIT/ML SUBCUT SCH ×4 (08:02→21:04)
[2021-03-11] MEDS: AMITRIPTYLINE 25 MG TABLET PO SCH (09:13)
[2021-03-11] MEDS: POLYETHYLENE GLYCOL POWDER 17 GM PACK PO SCH (09:19)
[2021-03-11] MEDS: FERROUS SULFATE 325 MG TABLET PO SCH (09:19)
[2021-03-11] MEDS: ASPIRIN EC 81 MG TABLET PO SCH (09:20)
[2021-03-11] MEDS: FUROSEMIDE 20 MG TABLET PO SCH (09:20)
[2021-03-11] MEDS: PANTOPRAZOLE 40 MG TABLET PO SCH (09:20)
[2021-03-11] MEDS: DOCUSATE SODIUM 100 MG CAPSULE PO SCH (09:20)
[2021-03-11] MEDS: CHLORHEXIDINE 0.12% ORAL RINSE 60 ML BOTTLE SWISH/SPIT SCH ×2 (09:20→21:26)
[2021-03-11] MEDS: ASCORBIC ACID 500 MG TABLET PO SCH ×2 (09:20→21:24)
[2021-03-11] MEDS: METHENAMINE HIPPURATE 1 GM TABLET PO SCH ×2 (09:20→21:25)
[2021-03-11] MEDS: METOPROLOL TARTRATE 25 MG TABLET PO SCH (09:20)
[2021-03-11] MEDS: CHOLECALCIFEROL 5,000 UNIT TABLET PO SCH (09:20)
[2021-03-11] MEDS ORDERED: traMADol 50 MG TABLET PO PRN (12:23)
[2021-03-11] MEDS ORDERED: AMITRIPTYLINE 25 MG TABLET PO SCH (21:00)
[2021-03-11] MEDS ORDERED: traMADol 50 MG TABLET PO SCH (21:00)
[2021-03-12 04:33] LABS: Calcium 8.5 MG/DL (8.5-10.1); Osmolality,Calculated 291.1 MOS/KG (273-304); Potassium 4.4 MMOL/L (3.5-5.1)
[2021-03-12] MEDS: POLYETHYLENE GLYCOL POWDER 17 GM PACK PO SCH (08:58)
[2021-03-12] MEDS: INSULIN REGULAR 100 UNIT/ML SUBCUT SCH ×2 (08:59→11:58)
[2021-03-12] MEDS: DOCUSATE SODIUM 100 MG CAPSULE PO SCH (09:01)
[2021-03-12] MEDS: ASCORBIC ACID 500 MG TABLET PO SCH (09:01)
[2021-03-12] MEDS: ASPIRIN EC 81 MG TABLET PO SCH (09:02)
[2021-03-12] MEDS: METHENAMINE HIPPURATE 1 GM TABLET PO SCH (09:02)
[2021-03-12] MEDS: CHOLECALCIFEROL 5,000 UNIT TABLET PO SCH (09:02)
[2021-03-12] MEDS: METOPROLOL TARTRATE 25 MG TABLET PO SCH (09:02)
[2021-03-12] MEDS: PANTOPRAZOLE 40 MG TABLET PO SCH (09:02)
[2021-03-12] MEDS: FUROSEMIDE 20 MG TABLET PO SCH (09:02)
[2021-03-12] MEDS: MAGNESIUM HYDROXIDE SUSP 30 ML UDCUP PO PRN (09:03)
[2021-03-12] MEDS: CHLORHEXIDINE 0.12% ORAL RINSE 60 ML BOTTLE SWISH/SPIT SCH (09:03)
[2021-03-12] MEDS: FERROUS SULFATE 325 MG TABLET PO SCH (10:03)
[2021-03-12] MEDS ORDERED: LACTULOSE 20 GM/30 ML UDCUP PO ONE (10:35)
[2021-03-12] MEDS: KETOROLAC 30 MG/1 ML VIAL IV PRN (13:17)
[2021-03-12] MEDS: ONDANSETRON 4 MG/2 ML VIAL IV PRN (13:19)
[2021-03-12] MEDS ORDERED: LACTULOSE 20 GM/30 ML UDCUP PO SCH (14:00)
[2021-03-12 15:19] VITALS: BP 124/58
== END 2021-03-12 14:21 | disposition swing bed (61) | DRG 236 ==
LOC: N.4E 12:30 → N.CVR 03-04 10:19 → N.ICU 03-05 11:55 → N.TELES 03-06 10:28